=== PATIENT | male | born 1945 | race Caucasian/White ===

== ENCOUNTER 2019-07-22 22:25 | Inpatient (IN) | payer OTHER, SELFPAY ==
[~2019-07-22] VITALS: Ht 185.4 cm; Wt 117.9 kg
[2019-07-22 22:37] VITALS: BP_SYST 106
[2019-07-22] MEDS ORDERED: NACL 0.9% 1,000 ML IV ONE (23:00)
[2019-07-22 23:03] LABS: BASOPHILS # (AUTO) 0.1 K/uL (0.0-0.2); BASOPHILS % (AUTO) 0.7 % (0.0-2.0); EOSINOPHILS % (AUTO) 0.1 % (0.0-4.0); HEMATOCRIT 42.9 % (36-54); LYMPHOCYTES # (AUTO) 1.1 K/uL (1.0-5.5); LYMPHOCYTES % (AUTO) 7.1 % (20.5-51.5); MEAN CORPUSCULAR HEMOGLOBIN 27 pg (27-31); MEAN CORPUSCULAR HGB CONC 33 % (32-36); MEAN CORPUSCULAR VOLUME 83 fL (79.0-98.0); MONOCYTES # (AUTO) 0.8 K/uL (0.0-1.0); MONOCYTES % (AUTO) 5.2 % (1.7-9.3); NEUTROPHILS # (AUTO) 13.5 K/uL (1.8-7.7); NEUTROPHILS % (AUTO) 86.9 % (40.0-70.0); PLATELET COUNT (AUTO) 270 K/uL (130-430); RED BLOOD CELL COUNT(AUTO) 5.18 MIL/uL (4.2-6.2); RED CELL DISTRIBUTION WIDTH 16.5 % (9.0-15.0); WHITE BLOOD COUNT (AUTO) 15.6 K/uL (4.8-10.8)
[2019-07-22 23:14] LABS: ANION GAP 8 (5-15); CALCIUM 9.5 mg/dL (8.4-11.0); CHLORIDE 98 mmol/L (98-107); CREATININE 1.22 mg/dL (0.55-1.30); GLUCOSE 187 mg/dL (70-99); POTASSIUM 4.6 mmol/L (3.5-5.1); SODIUM SERUM 134 mmol/L (136-145); UREA NITROGEN, BLOOD 22 mg/dL (8-21)
[2019-07-22 23:17] LABS: STREPTOCOCCUS A SCREEN (RAPID) NEGATIVE (NEGATIVE)
[2019-07-22 23:18] LABS: PROTHROMBIN TIME 9.9 SECS (9.5-12.5)
[2019-07-22 23:20] LABS: ALANINE AMINOTRANSFERASE 31 U/L (12-78); ALBUMIN 3.6 g/dL (3.4-4.8); ASPARTATE AMINOTRANSFERASE 68 U/L (10-37); TOTAL BILIRUBIN 0.5 mg/dL (0.0-1.0)
[2019-07-22] MEDS ORDERED: IBUPROFEN 600 MG TABLET PO ONE (23:30)
[2019-07-22] MEDS ORDERED: IBUPROFEN 600 MG TABLET ONE (23:30)
[2019-07-22] MEDS ORDERED: OMEG-173 PO (23:40)
[2019-07-22] MEDS ORDERED: VENL75CA PO (23:40)
[2019-07-22] MEDS ORDERED: CHOL2000 PO (23:40)
[2019-07-22] MEDS ORDERED: CLON0.5T12 PO (23:40)
[2019-07-22] MEDS ORDERED: LISI-600 PO (23:40)
[2019-07-22] MEDS ORDERED: LIP20 PO (23:40)
[2019-07-22] MEDS ORDERED: CLOP75TA32 PO (23:40)
[2019-07-22] MEDS ORDERED: TAMS-11 PO (23:40)
[2019-07-22] MEDS ORDERED: ACET-2165 PO (23:40)
[2019-07-22] MEDS ORDERED: INSU100I4 SUBQ (23:40)
[2019-07-22] MEDS ORDERED: VORT5TAB PO (23:40)
[2019-07-22] MEDS ORDERED: OSELTAMIVIR PHOSPHATE 6 MG/1 ML, 60 ML SUSP PO ONE (23:45)
[2019-07-23] VITALS (23 sets, daily range): BP systolic 87–148
[2019-07-23 00:26] LABS: BILIRUBIN,URINE NEGATIVE (NEGATIVE); BLOOD, URINE NEGATIVE (NEGATIVE); CLARITY/URINE CLEAR (CLEAR); COLOR,URINE YELLOW (YELLOW); GLUCOSE,URINE NEGATIVE (NEGATIVE); KETONES,URINE NEGATIVE (NEGATIVE); LEUKOCYTE ESTERASE ,URINE NEGATIVE (NEGATIVE); NITRITE, URINE NEGATIVE (NEGATIVE); PH,URINE 5.5 (5.0-8.0); PROTEIN URINE 1+ (NEGATIVE); UROBILINOGEN,URINE 0.2 (0.2-1.0)
[2019-07-23 00:32] LABS: RBC,URINE 0-3 /HPF (0-3)
[2019-07-23 00:33] LABS: BACTERIA,URINE FEW /HPF (None Seen)
[2019-07-23] MEDS ORDERED: NACL 0.9% 1,000 ML IV ONE (00:42)
[2019-07-23] MEDS ORDERED: cefTRIAXone 1 GM IVPB PREMIX 50 ML IV ONE (00:45)
[2019-07-23] MEDS ORDERED: OSELTAMIVIR PHOSPHATE 75 MG CAPSULE PO ONE (01:15)
[2019-07-23] MEDS ORDERED: OSELTAMIVIR PHOSPHATE 75 MG CAPSULE ONE (01:27)
[2019-07-23] MEDS ORDERED: ALBUTEROL SULFATE 0.083% 2.5 MG/3 ML VIAL.NEB INH PRN (03:00)
[2019-07-23] MEDS ORDERED: ACETAMINOPHEN 325 MG TABLET PO PRN ×2 (03:00→03:30)
[2019-07-23] MEDS: IPRATROPIUM/ALBUTEROL SULFATE 3 ML AMPUL.NEB (DUONEB) INH SCH ×4 (03:00→21:25)
[2019-07-23] MEDS ORDERED: AZITHROMYCIN 500 MG in NS 250 ML IV SCH ×2 (03:30→21:00)
[2019-07-23] MEDS ORDERED: HYDROcodone/ACETAMIN 5-325 MG TAB (NORCO/ VICODIN) PO PRN (03:30)
[2019-07-23] MEDS ORDERED: ONDANSETRON HCL 4 MG/2 ML VIAL IVP PRN (03:30)
[2019-07-23] MEDS ORDERED: cefTRIAXone 1 GM IVPB PREMIX 50 ML IV SCH (03:30)
[2019-07-23] MEDS ORDERED: AZITHROMYCIN 500 MG/VIAL (ZITHROMAX) IV ONE (04:39)
[2019-07-23] MEDS: NACL 0.9% 1,000 ML IV SCH ×3 (05:03→21:12)
[2019-07-23] MEDS: INSULIN REGULAR, HUMAN 100 UNITS/ML, 10 ML VIAL (humuLIN R) SUBCUT PRN ×3 (05:09→18:20)
[2019-07-23 08:42] LABS: BASOPHILS # (AUTO) 0.1 K/uL (0.0-0.2); BASOPHILS % (AUTO) 0.4 % (0.0-2.0); HEMATOCRIT 39.7 % (36-54); HEMOGLOBIN 13.1 g/dL (14.0-18.0); LYMPHOCYTES # (AUTO) 0.9 K/uL (1.0-5.5); MEAN CORPUSCULAR HEMOGLOBIN 27 pg (27-31); MEAN CORPUSCULAR HGB CONC 33 % (32-36); MEAN CORPUSCULAR VOLUME 83 fL (79.0-98.0); MONOCYTES # (AUTO) 0.7 K/uL (0.0-1.0); MONOCYTES % (AUTO) 4.7 % (1.7-9.3); NEUTROPHILS # (AUTO) 13.5 K/uL (1.8-7.7); NEUTROPHILS % (AUTO) 88.9 % (40.0-70.0); PLATELET COUNT (AUTO) 238 K/uL (130-430); RED BLOOD CELL COUNT(AUTO) 4.77 MIL/uL (4.2-6.2); RED CELL DISTRIBUTION WIDTH 16.7 % (9.0-15.0); WHITE BLOOD COUNT (AUTO) 15.2 K/uL (4.8-10.8)
[2019-07-23] MEDS ORDERED: OSELTAMIVIR PHOSPHATE 75 MG CAPSULE PO SCH (09:00)
[2019-07-23] MEDS: ATORVASTATIN 20 MG TABLET PO SCH (09:15)
[2019-07-23] MEDS: TAMSULOSIN HCL 0.4 MG CAP PO SCH (09:15)
[2019-07-23] MEDS: OSELTAMIVIR PHOSPHATE 75 MG CAPSULE PO SCH ×2 (09:15→21:15)
[2019-07-23] MEDS: LISINOPRIL 20 MG TABLET PO SCH (09:15)
[2019-07-23] MEDS: ENOXAPARIN SODIUM 30 MG/0.3 ML SYRINGE SUBCUT SCH (09:16)
[2019-07-23 09:41] LABS: ALANINE AMINOTRANSFERASE 77 U/L (12-78); ALBUMIN 2.9 g/dL (3.4-4.8); ASPARTATE AMINOTRANSFERASE 129 U/L (10-37); CALCIUM 8.3 mg/dL (8.4-11.0); CHLORIDE 102 mmol/L (98-107); CREATININE 1.15 mg/dL (0.55-1.30); GLUCOSE 250 mg/dL (70-99); SODIUM SERUM 135 mmol/L (136-145); TOTAL BILIRUBIN 0.7 mg/dL (0.0-1.0); UREA NITROGEN, BLOOD 23 mg/dL (8-21)
[2019-07-23 09:45] LABS: ANION GAP 15 (5-15)
[2019-07-23] MEDS: CLOPIDOGREL BISULFATE 75 MG TABLET PO SCH (11:05)
[2019-07-23] MEDS: Effexor XR 37.5 MG PO SCH ×2 (11:10→21:14)
[2019-07-23] MEDS ORDERED: metroNIDAZOLE 500 mg/NS 100 ML IV ONE (14:00)
[2019-07-23] MEDS ORDERED: EMOLLIENT COMBINATION NO.73 78 GM CREAM..G. TP ONE (17:00)
[2019-07-23] MEDS: cefTRIAXone 1 GM in D5W 50 ML IV SCH (21:12)
[2019-07-23] MEDS: IBUPROFEN 600 MG TABLET PO PRN (21:16)
[2019-07-23] MEDS: EMOLLIENT COMBINATION NO.73 78 GM CREAM..G. TP SCH (21:18)
[2019-07-23] MEDS: metroNIDAZOLE 500 mg/NS 100 ML IV SCH (21:21)
[2019-07-24] VITALS (18 sets, daily range): BP systolic 99–158
[2019-07-24] MEDS: INSULIN REGULAR, HUMAN 100 UNITS/ML, 10 ML VIAL (humuLIN R) SUBCUT PRN ×5 (00:56→23:56)
[2019-07-24] MEDS: IPRATROPIUM/ALBUTEROL SULFATE 3 ML AMPUL.NEB (DUONEB) INH SCH ×4 (01:49→19:46)
[2019-07-24] MEDS: NACL 0.9% 1,000 ML IV SCH ×3 (03:00→21:36)
[2019-07-24 05:01] LABS: BASOPHILS # (AUTO) 0.1 K/uL (0.0-0.2); BASOPHILS % (AUTO) 0.6 % (0.0-2.0); EOSINOPHILS # (AUTO) 0.1 K/uL (0.0-0.4); EOSINOPHILS % (AUTO) 0.4 % (0.0-4.0); HEMATOCRIT 35.8 % (36-54); HEMOGLOBIN 11.6 g/dL (14.0-18.0); LYMPHOCYTES # (AUTO) 1.1 K/uL (1.0-5.5); LYMPHOCYTES % (AUTO) 10.1 % (20.5-51.5); MEAN CORPUSCULAR HEMOGLOBIN 27 pg (27-31); MEAN CORPUSCULAR HGB CONC 33 % (32-36); MEAN CORPUSCULAR VOLUME 84 fL (79.0-98.0); MONOCYTES # (AUTO) 1.2 K/uL (0.0-1.0); MONOCYTES % (AUTO) 10.3 % (1.7-9.3); NEUTROPHILS # (AUTO) 8.9 K/uL (1.8-7.7); NEUTROPHILS % (AUTO) 78.6 % (40.0-70.0); PLATELET COUNT (AUTO) 204 K/uL (130-430); RED BLOOD CELL COUNT(AUTO) 4.28 MIL/uL (4.2-6.2); RED CELL DISTRIBUTION WIDTH 16.1 % (9.0-15.0); WHITE BLOOD COUNT (AUTO) 11.3 K/uL (4.8-10.8)
[2019-07-24 05:18] LABS: ALANINE AMINOTRANSFERASE 79 U/L (12-78); ALBUMIN 2.5 g/dL (3.4-4.8); ANION GAP 7 (5-15); ASPARTATE AMINOTRANSFERASE 29 U/L (10-37); CALCIUM 8.3 mg/dL (8.4-11.0); CHLORIDE 101 mmol/L (98-107); CREATININE 1.14 mg/dL (0.55-1.30); GLUCOSE 253 mg/dL (70-99); POTASSIUM 3.5 mmol/L (3.5-5.1); SODIUM SERUM 131 mmol/L (136-145); TOTAL BILIRUBIN 0.4 mg/dL (0.0-1.0); UREA NITROGEN, BLOOD 24 mg/dL (8-21)
[2019-07-24] MEDS: metroNIDAZOLE 500 mg/NS 100 ML IV SCH ×2 (06:40→12:57)
[2019-07-24] MEDS: ENOXAPARIN SODIUM 30 MG/0.3 ML SYRINGE SUBCUT SCH (08:38)
[2019-07-24] MEDS: OSELTAMIVIR PHOSPHATE 75 MG CAPSULE PO SCH ×2 (08:39→21:32)
[2019-07-24] MEDS: TAMSULOSIN HCL 0.4 MG CAP PO SCH (08:39)
[2019-07-24] MEDS: ATORVASTATIN 20 MG TABLET PO SCH (08:39)
[2019-07-24] MEDS: Effexor XR 37.5 MG PO SCH (08:39)
[2019-07-24] MEDS: LISINOPRIL 20 MG TABLET PO SCH (08:39)
[2019-07-24] MEDS: CLOPIDOGREL BISULFATE 75 MG TABLET PO SCH (08:39)
[2019-07-24] MEDS: EMOLLIENT COMBINATION NO.73 78 GM CREAM..G. TP SCH ×2 (08:45→21:33)
[2019-07-24] MEDS ORDERED: cefTRIAXone 1 GM in D5W 50 ML IV SCH (09:00)
[2019-07-24] MEDS ORDERED: LORazepam 2 MG/ML VIAL IVP ONE (21:30)
[2019-07-24] MEDS: DOXYCYCLINE HYCLATE 100 MG CAPSULE PO SCH (21:32)
[2019-07-24] MEDS: cefTRIAXone 1 GM in D5W 50 ML IV SCH (21:34)
[2019-07-25] MEDS: IBUPROFEN 600 MG TABLET PO PRN (00:33)
[2019-07-25 00:57] VITALS: BP_SYST 147
[2019-07-25] MEDS: IPRATROPIUM/ALBUTEROL SULFATE 3 ML AMPUL.NEB (DUONEB) INH SCH ×4 (01:05→19:40)
[2019-07-25] MEDS: clonazePAM 0.5 MG TABLET PO PRN (01:54)
[2019-07-25] MEDS: NACL 0.9% 1,000 ML IV SCH ×3 (03:28→19:56)
[2019-07-25] MEDS: INSULIN REGULAR, HUMAN 100 UNITS/ML, 10 ML VIAL (humuLIN R) SUBCUT PRN ×4 (06:04→23:57)
[2019-07-25] MEDS: DOXYCYCLINE HYCLATE 100 MG CAPSULE PO SCH ×2 (08:22→19:57)
[2019-07-25] MEDS: LISINOPRIL 20 MG TABLET PO SCH (08:22)
[2019-07-25] MEDS: TAMSULOSIN HCL 0.4 MG CAP PO SCH (08:22)
[2019-07-25] MEDS: CLOPIDOGREL BISULFATE 75 MG TABLET PO SCH (08:22)
[2019-07-25] MEDS: ATORVASTATIN 20 MG TABLET PO SCH (08:22)
[2019-07-25] MEDS: OSELTAMIVIR PHOSPHATE 75 MG CAPSULE PO SCH ×2 (08:22→19:57)
[2019-07-25] MEDS: EMOLLIENT COMBINATION NO.73 78 GM CREAM..G. TP SCH ×2 (08:23→19:57)
[2019-07-25] MEDS: ENOXAPARIN SODIUM 30 MG/0.3 ML SYRINGE SUBCUT SCH (08:25)
[2019-07-25 10:03] VITALS: BP_SYST 154
[2019-07-25 12:43] VITALS: BP_SYST 115
[2019-07-25 16:18] VITALS: BP_SYST 135
[2019-07-25] MEDS: cefTRIAXone 1 GM in D5W 50 ML IV SCH (19:57)
[2019-07-25 20:00] VITALS: BP_SYST 146
[2019-07-26] VITALS (21 sets, daily range): BP systolic 115–167
[2019-07-26] MEDS: clonazePAM 0.5 MG TABLET PO PRN (01:54)
[2019-07-26] MEDS: IPRATROPIUM/ALBUTEROL SULFATE 3 ML AMPUL.NEB (DUONEB) INH SCH ×2 (01:54→19:41)
[2019-07-26] MEDS ORDERED: DILTIAZEM HCL 25 MG/5 ML VIAL IVP ONE ×2 (02:45→06:30)
[2019-07-26] MEDS: INSULIN REGULAR, HUMAN 100 UNITS/ML, 10 ML VIAL (humuLIN R) SUBCUT PRN ×3 (05:10→18:39)
[2019-07-26] MEDS: LISINOPRIL 20 MG TABLET PO SCH (09:00)
[2019-07-26] MEDS ORDERED: PROPOFOL DRIP 100 ML IV ONE (10:19)
[2019-07-26] MEDS ORDERED: FUROSEMIDE 20 MG/2 ML VIAL IVP ONE (10:30)
[2019-07-26 11:29] LABS: EOSINOPHILS % (AUTO) 0.1 % (0.0-4.0); HEMATOCRIT 40.8 % (36-54); HEMOGLOBIN 12.8 g/dL (14.0-18.0); LYMPHOCYTES # (AUTO) 0.7 K/uL (1.0-5.5); LYMPHOCYTES % (AUTO) 4.2 % (20.5-51.5); MEAN CORPUSCULAR HEMOGLOBIN 27 pg (27-31); MEAN CORPUSCULAR HGB CONC 31 % (32-36); MEAN CORPUSCULAR VOLUME 85 fL (79.0-98.0); MONOCYTES # (AUTO) 2.1 K/uL (0.0-1.0); MONOCYTES % (AUTO) 11.6 % (1.7-9.3); PLATELET COUNT (AUTO) 328 K/uL (130-430); RED CELL DISTRIBUTION WIDTH 17.2 % (9.0-15.0); WHITE BLOOD COUNT (AUTO) 17.9 K/uL (4.8-10.8)
[2019-07-26 11:49] LABS: CHLORIDE 101 mmol/L (98-107); SODIUM SERUM 134 mmol/L (136-145); TOTAL BILIRUBIN 0.8 mg/dL (0.0-1.0)
[2019-07-26] MEDS ORDERED: ETOMIDATE 20 MG/ 10 ML VIAL (AMIDATE) IVP ONE (11:52)
[2019-07-26] MEDS ORDERED: SUCCINYLCHOLINE CHLORIDE 20 MG/ML(QUELICIN) IVP ONE (11:52)
[2019-07-26 12:05] LABS: ALANINE AMINOTRANSFERASE 88 U/L (12-78); ALBUMIN 2.3 g/dL (3.4-4.8); ANION GAP 15 (5-15); ASPARTATE AMINOTRANSFERASE 107 U/L (10-37); CALCIUM 8.4 mg/dL (8.4-11.0); CREATININE 1.63 mg/dL (0.55-1.30); POTASSIUM 4.7 mmol/L (3.5-5.1); UREA NITROGEN, BLOOD 19 mg/dL (8-21)
[2019-07-26 12:09] LABS: GLUCOSE 454 mg/dL (70-99)
[2019-07-26 12:11] LABS: INR 1.1 (0.80-1.20); PROTHROMBIN TIME 11.1 SECS (9.5-12.5)
[2019-07-26 12:21] LABS: NEUTROPHILS % (AUTO) 84.1 % (40.0-70.0)
[2019-07-26] MEDS: NACL 0.9% 1,000 ML IV SCH (13:19)
[2019-07-26] MEDS: ATORVASTATIN 20 MG TABLET PO SCH (13:20)
[2019-07-26] MEDS: CLOPIDOGREL BISULFATE 75 MG TABLET PO SCH (13:20)
[2019-07-26] MEDS: DOXYCYCLINE HYCLATE 100 MG CAPSULE PO SCH ×2 (13:20→21:11)
[2019-07-26] MEDS: TAMSULOSIN HCL 0.4 MG CAP PO SCH (13:20)
[2019-07-26] MEDS: OSELTAMIVIR PHOSPHATE 75 MG CAPSULE PO SCH ×2 (13:20→21:09)
[2019-07-26] MEDS: PIPERACILLIN/TAZO 3.375/DEX-IS 50 ML IV SCH ×2 (13:22→18:29)
[2019-07-26] MEDS: ENOXAPARIN SODIUM 30 MG/0.3 ML SYRINGE SUBCUT SCH (13:22)
[2019-07-26] MEDS: EMOLLIENT COMBINATION NO.73 78 GM CREAM..G. TP SCH ×2 (13:28→21:12)
[2019-07-26] MEDS: PROPOFOL DRIP 100 ML IV PRN ×2 (17:56→18:33)
[2019-07-26 21:02] LABS: HEMATOCRIT 35.7 % (36-54); HEMOGLOBIN 11.5 g/dL (14.0-18.0)
[2019-07-26] MEDS ORDERED: PANTOPRAZOLE SODIUM 40 MG/VIAL (PROTONIX) ONE (21:03)
[2019-07-26] MEDS: PANTOPRAZOLE SODIUM 40 MG in NS 50 ML IV SCH (21:05)
[2019-07-26] MEDS: cefTRIAXone 1 GM in D5W 50 ML IV SCH (21:09)
[2019-07-27] VITALS (33 sets, daily range): BP systolic 94–167
[2019-07-27] MEDS ORDERED: PANTOPRAZOLE SODIUM 40 MG/VIAL (PROTONIX) ONE ×2 (00:58→05:58)
[2019-07-27] MEDS: PIPERACILLIN/TAZO 3.375/DEX-IS 50 ML IV SCH ×4 (01:01→17:41)
[2019-07-27] MEDS: PANTOPRAZOLE SODIUM 40 MG in NS 50 ML IV SCH ×5 (01:01→20:34)
[2019-07-27] MEDS: IPRATROPIUM/ALBUTEROL SULFATE 3 ML AMPUL.NEB (DUONEB) INH SCH ×4 (01:21→19:44)
[2019-07-27] MEDS: INSULIN REGULAR, HUMAN 100 UNITS/ML, 10 ML VIAL (humuLIN R) SUBCUT PRN ×4 (01:35→17:48)
[2019-07-27] MEDS: PROPOFOL DRIP 100 ML IV PRN ×5 (05:25→20:39)
[2019-07-27 05:26] LABS: BASOPHILS # (AUTO) 0.1 K/uL (0.0-0.2); BASOPHILS % (AUTO) 0.5 % (0.0-2.0); EOSINOPHILS # (AUTO) 0.2 K/uL (0.0-0.4); EOSINOPHILS % (AUTO) 1.2 % (0.0-4.0); HEMATOCRIT 36.9 % (36-54); HEMOGLOBIN 11.8 g/dL (14.0-18.0); LYMPHOCYTES # (AUTO) 1.4 K/uL (1.0-5.5); LYMPHOCYTES % (AUTO) 8.7 % (20.5-51.5); MEAN CORPUSCULAR HEMOGLOBIN 26 pg (27-31); MEAN CORPUSCULAR HGB CONC 32 % (32-36); MONOCYTES # (AUTO) 1.4 K/uL (0.0-1.0); MONOCYTES % (AUTO) 8.6 % (1.7-9.3); NEUTROPHILS # (AUTO) 13.1 K/uL (1.8-7.7); PLATELET COUNT (AUTO) 335 K/uL (130-430); RED BLOOD CELL COUNT(AUTO) 4.49 MIL/uL (4.2-6.2); RED CELL DISTRIBUTION WIDTH 16.9 % (9.0-15.0); WHITE BLOOD COUNT (AUTO) 16.2 K/uL (4.8-10.8)
[2019-07-27 05:35] LABS: MEAN CORPUSCULAR VOLUME 83 fL (79.0-98.0)
[2019-07-27 05:37] LABS: ALANINE AMINOTRANSFERASE 108 U/L (12-78); ALBUMIN 2.2 g/dL (3.4-4.8); ANION GAP 12 (5-15); ASPARTATE AMINOTRANSFERASE 108 U/L (10-37); CALCIUM 8.8 mg/dL (8.4-11.0); CHLORIDE 103 mmol/L (98-107); CREATININE 1.56 mg/dL (0.55-1.30); GLUCOSE 322 mg/dL (70-99); POTASSIUM 3.3 mmol/L (3.5-5.1); SODIUM SERUM 139 mmol/L (136-145); TOTAL BILIRUBIN 0.5 mg/dL (0.0-1.0); UREA NITROGEN, BLOOD 24 mg/dL (8-21)
[2019-07-27] MEDS: NACL 0.9% 1,000 ML IV SCH ×2 (06:02→20:35)
[2019-07-27] MEDS: CLOPIDOGREL BISULFATE 75 MG TABLET PO SCH (08:21)
[2019-07-27] MEDS: OSELTAMIVIR PHOSPHATE 75 MG CAPSULE PO SCH ×2 (08:21→20:36)
[2019-07-27] MEDS: TAMSULOSIN HCL 0.4 MG CAP PO SCH (08:22)
[2019-07-27] MEDS: LISINOPRIL 20 MG TABLET PO SCH (08:22)
[2019-07-27] MEDS: ATORVASTATIN 20 MG TABLET PO SCH (08:22)
[2019-07-27] MEDS: DOXYCYCLINE HYCLATE 100 MG CAPSULE PO SCH ×2 (08:23→20:36)
[2019-07-27] MEDS: ENOXAPARIN SODIUM 30 MG/0.3 ML SYRINGE SUBCUT SCH (08:25)
[2019-07-27] MEDS: EMOLLIENT COMBINATION NO.73 78 GM CREAM..G. TP SCH ×2 (09:00→20:39)
[2019-07-27] MEDS ORDERED: FUROSEMIDE 20 MG/2 ML VIAL IVP ONE (09:30)
[2019-07-27] MEDS ORDERED: KCL 20 mEq in 100 mL (PREMIX) 200 ML IV ONE (09:30)
[2019-07-27] MEDS: LORazepam 2 MG/ML VIAL IM PRN ×3 (11:29→20:35)
[2019-07-27] MEDS: cefTRIAXone 1 GM in D5W 50 ML IV SCH (20:34)
[2019-07-28] VITALS (30 sets, daily range): BP systolic 93–152
[2019-07-28] MEDS: IPRATROPIUM/ALBUTEROL SULFATE 3 ML AMPUL.NEB (DUONEB) INH SCH ×4 (00:08→20:18)
[2019-07-28] MEDS: INSULIN REGULAR, HUMAN 100 UNITS/ML, 10 ML VIAL (humuLIN R) SUBCUT PRN ×4 (00:19→16:57)
[2019-07-28] MEDS: PIPERACILLIN/TAZO 3.375/DEX-IS 50 ML IV SCH ×4 (00:20→16:49)
[2019-07-28] MEDS: PANTOPRAZOLE SODIUM 40 MG in NS 50 ML IV SCH ×5 (00:20→21:59)
[2019-07-28] MEDS: LORazepam 2 MG/ML VIAL IM PRN (00:25)
[2019-07-28] MEDS: PROPOFOL DRIP 100 ML IV PRN ×4 (02:32→16:54)
[2019-07-28] MEDS: TAMSULOSIN HCL 0.4 MG CAP PO SCH (09:49)
[2019-07-28] MEDS: ATORVASTATIN 20 MG TABLET PO SCH (09:49)
[2019-07-28] MEDS: DOXYCYCLINE HYCLATE 100 MG CAPSULE PO SCH ×2 (09:50→21:58)
[2019-07-28] MEDS: LISINOPRIL 20 MG TABLET PO SCH (09:50)
[2019-07-28] MEDS: CLOPIDOGREL BISULFATE 75 MG TABLET PO SCH (09:50)
[2019-07-28] MEDS: NACL 0.9% 1,000 ML IV SCH (09:52)
[2019-07-28] MEDS: ENOXAPARIN SODIUM 30 MG/0.3 ML SYRINGE SUBCUT SCH (10:41)
[2019-07-28] MEDS: EMOLLIENT COMBINATION NO.73 78 GM CREAM..G. TP SCH ×2 (10:42→21:59)
[2019-07-28] MEDS ORDERED: BALSAM PERU/CASTOR OIL 60 GM OINT...G. TP ONE (12:00)
[2019-07-28] MEDS: MENTHOL/ZINC OXIDE 113 GM OINT. TP PRN (13:49)
[2019-07-28] MEDS ORDERED: MIDAZOLAM HCL 5 MG/5 ML VIAL ONE (15:59)
[2019-07-29] VITALS (31 sets, daily range): BP systolic 124–163
[2019-07-29] MEDS: PIPERACILLIN/TAZO 3.375/DEX-IS 50 ML IV SCH ×4 (00:46→18:22)
[2019-07-29] MEDS: PROPOFOL DRIP 100 ML IV PRN ×6 (00:46→21:29)
[2019-07-29] MEDS: NACL 0.9% 1,000 ML IV SCH ×2 (00:47→16:39)
[2019-07-29] MEDS: INSULIN REGULAR, HUMAN 100 UNITS/ML, 10 ML VIAL (humuLIN R) SUBCUT PRN ×4 (00:50→18:23)
[2019-07-29] MEDS: IPRATROPIUM/ALBUTEROL SULFATE 3 ML AMPUL.NEB (DUONEB) INH SCH ×4 (01:28→19:20)
[2019-07-29] MEDS: PANTOPRAZOLE SODIUM 40 MG in NS 50 ML IV SCH ×5 (03:07→21:27)
[2019-07-29] MEDS: TAMSULOSIN HCL 0.4 MG CAP PO SCH (09:13)
[2019-07-29] MEDS: CLOPIDOGREL BISULFATE 75 MG TABLET PO SCH (09:13)
[2019-07-29] MEDS: DOXYCYCLINE HYCLATE 100 MG CAPSULE PO SCH ×2 (09:14→21:26)
[2019-07-29] MEDS: ATORVASTATIN 20 MG TABLET PO SCH (09:14)
[2019-07-29] MEDS: BALSAM PERU/CASTOR OIL 60 GM OINT...G. TP SCH (09:15)
[2019-07-29] MEDS: MENTHOL/ZINC OXIDE 113 GM OINT. TP PRN (09:16)
[2019-07-29] MEDS: ENOXAPARIN SODIUM 30 MG/0.3 ML SYRINGE SUBCUT SCH (09:16)
[2019-07-29] MEDS: LISINOPRIL 20 MG TABLET PO SCH (09:22)
[2019-07-29] MEDS: EMOLLIENT COMBINATION NO.73 78 GM CREAM..G. TP SCH ×2 (10:43→21:26)
[2019-07-30] VITALS (29 sets, daily range): BP systolic 135–172
[2019-07-30] MEDS: PIPERACILLIN/TAZO 3.375/DEX-IS 50 ML IV SCH ×4 (00:03→17:15)
[2019-07-30] MEDS: INSULIN REGULAR, HUMAN 100 UNITS/ML, 10 ML VIAL (humuLIN R) SUBCUT PRN ×4 (00:06→17:40)
[2019-07-30] MEDS: IPRATROPIUM/ALBUTEROL SULFATE 3 ML AMPUL.NEB (DUONEB) INH SCH ×4 (01:47→21:31)
[2019-07-30] MEDS: PANTOPRAZOLE SODIUM 40 MG in NS 50 ML IV SCH ×4 (03:18→19:28)
[2019-07-30] MEDS: PROPOFOL DRIP 100 ML IV PRN ×4 (03:19→19:30)
[2019-07-30] MEDS: NACL 0.9% 1,000 ML IV SCH ×2 (05:34→21:47)
[2019-07-30 05:46] LABS: ANION GAP 8 (5-15); CALCIUM 8.5 mg/dL (8.4-11.0); CHLORIDE 104 mmol/L (98-107); CREATININE 1.21 mg/dL (0.55-1.30); GLUCOSE 250 mg/dL (70-99); POTASSIUM 3.4 mmol/L (3.5-5.1); SODIUM SERUM 137 mmol/L (136-145); UREA NITROGEN, BLOOD 21 mg/dL (8-21)
[2019-07-30] MEDS: TAMSULOSIN HCL 0.4 MG CAP PO SCH (08:58)
[2019-07-30] MEDS: ENOXAPARIN SODIUM 30 MG/0.3 ML SYRINGE SUBCUT SCH (08:58)
[2019-07-30] MEDS: LISINOPRIL 20 MG TABLET PO SCH (08:59)
[2019-07-30] MEDS: ATORVASTATIN 20 MG TABLET PO SCH (08:59)
[2019-07-30] MEDS: CLOPIDOGREL BISULFATE 75 MG TABLET PO SCH (08:59)
[2019-07-30] MEDS: DOXYCYCLINE HYCLATE 100 MG CAPSULE PO SCH ×2 (08:59→21:47)
[2019-07-30] MEDS: EMOLLIENT COMBINATION NO.73 78 GM CREAM..G. TP SCH ×2 (09:00→21:48)
[2019-07-30] MEDS: BALSAM PERU/CASTOR OIL 60 GM OINT...G. TP SCH (09:01)
[2019-07-30] MEDS: MENTHOL/ZINC OXIDE 113 GM OINT. TP PRN (09:02)
[2019-07-30] MEDS ORDERED: POTASSIUM CHLORIDE 20 MEQ in NS 250 ML IV ONE (11:45)
[2019-07-30] MEDS: hydrALAZINE HCL 20 MG/ML VIAL IVP PRN ×2 (13:21→22:34)
[2019-07-31] VITALS (34 sets, daily range): BP systolic 111–170
[2019-07-31] MEDS: PIPERACILLIN/TAZO 3.375/DEX-IS 50 ML IV SCH ×4 (00:19→17:28)
[2019-07-31] MEDS: PANTOPRAZOLE SODIUM 40 MG in NS 50 ML IV SCH ×6 (00:19→19:28)
[2019-07-31] MEDS: INSULIN REGULAR, HUMAN 100 UNITS/ML, 10 ML VIAL (humuLIN R) SUBCUT PRN ×4 (00:25→17:32)
[2019-07-31] MEDS: PROPOFOL DRIP 100 ML IV PRN ×5 (01:33→17:29)
[2019-07-31] MEDS: IPRATROPIUM/ALBUTEROL SULFATE 3 ML AMPUL.NEB (DUONEB) INH SCH ×4 (01:47→19:35)
[2019-07-31] MEDS: hydrALAZINE HCL 20 MG/ML VIAL IVP PRN ×2 (04:19→23:50)
[2019-07-31] MEDS: ATORVASTATIN 20 MG TABLET PO SCH (09:07)
[2019-07-31] MEDS: CLOPIDOGREL BISULFATE 75 MG TABLET PO SCH (09:07)
[2019-07-31] MEDS: TAMSULOSIN HCL 0.4 MG CAP PO SCH (09:07)
[2019-07-31] MEDS: LISINOPRIL 20 MG TABLET PO SCH (09:07)
[2019-07-31] MEDS: ENOXAPARIN SODIUM 30 MG/0.3 ML SYRINGE SUBCUT SCH (09:08)
[2019-07-31] MEDS: NACL 0.9% 1,000 ML IV SCH (09:09)
[2019-07-31] MEDS: BALSAM PERU/CASTOR OIL 60 GM OINT...G. TP SCH (09:09)
[2019-07-31] MEDS: EMOLLIENT COMBINATION NO.73 78 GM CREAM..G. TP SCH ×2 (09:10→21:55)
[2019-07-31] MEDS: MENTHOL/ZINC OXIDE 113 GM OINT. TP PRN (09:58)
[2019-07-31 15:16] LABS: BASOPHILS # (AUTO) 0.1 K/uL (0.0-0.2); BASOPHILS % (AUTO) 0.6 % (0.0-2.0); EOSINOPHILS # (AUTO) 0.9 K/uL (0.0-0.4); EOSINOPHILS % (AUTO) 5.2 % (0.0-4.0); HEMATOCRIT 32.6 % (36-54); HEMOGLOBIN 10.7 g/dL (14.0-18.0); LYMPHOCYTES # (AUTO) 1.5 K/uL (1.0-5.5); LYMPHOCYTES % (AUTO) 9.3 % (20.5-51.5); MEAN CORPUSCULAR HEMOGLOBIN 27 pg (27-31); MEAN CORPUSCULAR HGB CONC 33 % (32-36); MEAN CORPUSCULAR VOLUME 84 fL (79.0-98.0); MONOCYTES # (AUTO) 1.1 K/uL (0.0-1.0); MONOCYTES % (AUTO) 6.5 % (1.7-9.3); NEUTROPHILS % (AUTO) 78.4 % (40.0-70.0); PLATELET COUNT (AUTO) 339 K/uL (130-430); RED CELL DISTRIBUTION WIDTH 16.6 % (9.0-15.0); WHITE BLOOD COUNT (AUTO) 16.6 K/uL (4.8-10.8)
[2019-07-31] MEDS: FUROSEMIDE 20 MG/2 ML VIAL IVP SCH (21:54)
[2019-08-01] VITALS (33 sets, daily range): BP systolic 111–188
[2019-08-01] MEDS: NACL 0.9% 1,000 ML IV SCH ×2 (00:01→14:54)
[2019-08-01] MEDS: INSULIN REGULAR, HUMAN 100 UNITS/ML, 10 ML VIAL (humuLIN R) SUBCUT PRN ×4 (00:11→17:21)
[2019-08-01] MEDS: PANTOPRAZOLE SODIUM 40 MG in NS 50 ML IV SCH ×5 (00:29→22:33)
[2019-08-01] MEDS: IPRATROPIUM/ALBUTEROL SULFATE 3 ML AMPUL.NEB (DUONEB) INH SCH ×3 (00:32→13:29)
[2019-08-01] MEDS: PROPOFOL DRIP 100 ML IV PRN ×3 (01:28→11:57)
[2019-08-01] MEDS: hydrALAZINE HCL 20 MG/ML VIAL IVP PRN ×2 (03:50→09:29)
[2019-08-01] MEDS: LORazepam 2 MG/ML VIAL IM PRN (05:53)
[2019-08-01] MEDS: PIPERACILLIN/TAZO 3.375/DEX-IS 50 ML IV SCH ×4 (05:53→17:18)
[2019-08-01] MEDS: BALSAM PERU/CASTOR OIL 60 GM OINT...G. TP SCH (08:14)
[2019-08-01] MEDS: EMOLLIENT COMBINATION NO.73 78 GM CREAM..G. TP SCH (08:14)
[2019-08-01] MEDS: ENOXAPARIN SODIUM 30 MG/0.3 ML SYRINGE SUBCUT SCH (08:15)
[2019-08-01] MEDS: FUROSEMIDE 20 MG/2 ML VIAL IVP SCH (08:15)
[2019-08-01] MEDS: CLOPIDOGREL BISULFATE 75 MG TABLET PO SCH (08:16)
[2019-08-01] MEDS: TAMSULOSIN HCL 0.4 MG CAP PO SCH (08:16)
[2019-08-01] MEDS: LISINOPRIL 20 MG TABLET PO SCH (08:16)
[2019-08-01] MEDS: ATORVASTATIN 20 MG TABLET PO SCH (08:16)
[2019-08-01 10:41] LABS: ALANINE AMINOTRANSFERASE 69 U/L (12-78); ALBUMIN 1.9 g/dL (3.4-4.8); ANION GAP 15 (5-15); ASPARTATE AMINOTRANSFERASE 33 U/L (10-37); CALCIUM 8.2 mg/dL (8.4-11.0); CHLORIDE 103 mmol/L (98-107); CREATININE 1.59 mg/dL (0.55-1.30); POTASSIUM 3.4 mmol/L (3.5-5.1); SODIUM SERUM 138 mmol/L (136-145); TOTAL BILIRUBIN 0.5 mg/dL (0.0-1.0); UREA NITROGEN, BLOOD 25 mg/dL (8-21)
[2019-08-01 10:54] LABS: GLUCOSE 443 mg/dL (70-99)
[2019-08-01 11:41] LABS: EOSINOPHILS # (AUTO) 0.6 K/uL (0.0-0.4); EOSINOPHILS % (AUTO) 2.1 % (0.0-4.0); HEMATOCRIT 41.4 % (36-54); HEMOGLOBIN 13.3 g/dL (14.0-18.0); LYMPHOCYTES # (AUTO) 1.1 K/uL (1.0-5.5); MEAN CORPUSCULAR HEMOGLOBIN 27 pg (27-31); MEAN CORPUSCULAR HGB CONC 32 % (32-36); MEAN CORPUSCULAR VOLUME 84 fL (79.0-98.0); MONOCYTES # (AUTO) 1.5 K/uL (0.0-1.0); MONOCYTES % (AUTO) 5.4 % (1.7-9.3); NEUTROPHILS # (AUTO) 24.5 K/uL (1.8-7.7); PLATELET COUNT (AUTO) 473 K/uL (130-430); RED BLOOD CELL COUNT(AUTO) 4.93 MIL/uL (4.2-6.2); RED CELL DISTRIBUTION WIDTH 17.4 % (9.0-15.0); WHITE BLOOD COUNT (AUTO) 27.7 K/uL (4.8-10.8)
[2019-08-01 12:05] LABS: NEUTROPHILS % (AUTO) 88.5 % (40.0-70.0)
[2019-08-01] MEDS ORDERED: VANCOMYCIN HCL 1,000 MG in NS 250 ML IV ONE (18:00)
[2019-08-01] MEDS: FLUCONAZOLE 200 mg/ NS 100 ML IV SCH (18:44)
[2019-08-02] VITALS (25 sets, daily range): BP systolic 118–187
[2019-08-02] MEDS: PIPERACILLIN/TAZO 3.375/DEX-IS 50 ML IV SCH ×4 (00:08→17:35)
[2019-08-02] MEDS: INSULIN GLARGINE 100 UNITS/ML 10 ML VIAL SUBCUT SCH ×2 (00:13→20:44)
[2019-08-02] MEDS: EMOLLIENT COMBINATION NO.73 78 GM CREAM..G. TP SCH ×3 (00:18→20:42)
[2019-08-02] MEDS: IPRATROPIUM/ALBUTEROL SULFATE 3 ML AMPUL.NEB (DUONEB) INH SCH ×5 (00:20→19:59)
[2019-08-02] MEDS: PROPOFOL DRIP 100 ML IV PRN ×3 (00:23→10:02)
[2019-08-02] MEDS: FUROSEMIDE 20 MG/2 ML VIAL IVP SCH ×3 (00:24→20:41)
[2019-08-02] MEDS: INSULIN REGULAR, HUMAN 100 UNITS/ML, 10 ML VIAL (humuLIN R) SUBCUT PRN ×4 (01:13→17:41)
[2019-08-02] MEDS: PANTOPRAZOLE SODIUM 40 MG in NS 50 ML IV SCH ×4 (03:45→20:40)
[2019-08-02] MEDS: NACL 0.9% 1,000 ML IV SCH ×2 (04:47→18:21)
[2019-08-02 05:43] LABS: HEMATOCRIT 36.2 % (36-54); HEMOGLOBIN 11.6 g/dL (14.0-18.0); MEAN CORPUSCULAR HEMOGLOBIN 27 pg (27-31); MEAN CORPUSCULAR HGB CONC 32 % (32-36); MEAN CORPUSCULAR VOLUME 84 fL (79.0-98.0); RED BLOOD CELL COUNT(AUTO) 4.31 MIL/uL (4.2-6.2); RED CELL DISTRIBUTION WIDTH 17.2 % (9.0-15.0); WHITE BLOOD COUNT (AUTO) 27.8 K/uL (4.8-10.8)
[2019-08-02 05:53] LABS: ALANINE AMINOTRANSFERASE 49 U/L (12-78); ALBUMIN 1.8 g/dL (3.4-4.8); ANION GAP 9 (5-15); ASPARTATE AMINOTRANSFERASE 20 U/L (10-37); CALCIUM 8.8 mg/dL (8.4-11.0); CHLORIDE 108 mmol/L (98-107); CREATININE 1.38 mg/dL (0.55-1.30); POTASSIUM 3.1 mmol/L (3.5-5.1); SODIUM SERUM 141 mmol/L (136-145); TOTAL BILIRUBIN 0.4 mg/dL (0.0-1.0); UREA NITROGEN, BLOOD 22 mg/dL (8-21)
[2019-08-02 06:01] LABS: GLUCOSE 421 mg/dL (70-99)
[2019-08-02 06:20] LABS: PLATELET COUNT (AUTO) 407 K/uL (130-430)
[2019-08-02 06:36] LABS: BAND % (MANUAL) 2 % (0-6); BASOPHILS % (MANUAL) 0 % (0-2); EOSINOPHILS % (MANUAL) 2 % (0-7); LYMPHOCYTES % (MANUAL) 4 % (20-46); MONOCYTES % (MANUAL) 3 % (0-11)
[2019-08-02] MEDS: VANCOMYCIN HCL 1,500 MG in NS 250 ML IV SCH ×2 (09:40→20:39)
[2019-08-02] MEDS: LISINOPRIL 20 MG TABLET PO SCH (09:41)
[2019-08-02] MEDS: TAMSULOSIN HCL 0.4 MG CAP PO SCH (09:41)
[2019-08-02] MEDS: CLOPIDOGREL BISULFATE 75 MG TABLET PO SCH (09:41)
[2019-08-02] MEDS: ATORVASTATIN 20 MG TABLET PO SCH (09:41)
[2019-08-02] MEDS: BALSAM PERU/CASTOR OIL 60 GM OINT...G. TP SCH (09:42)
[2019-08-02] MEDS: MENTHOL/ZINC OXIDE 113 GM OINT. TP PRN (09:42)
[2019-08-02] MEDS: ENOXAPARIN SODIUM 30 MG/0.3 ML SYRINGE SUBCUT SCH (09:44)
[2019-08-02] MEDS ORDERED: POTASSIUM CHLORIDE 20 MEQ/PKT PACKET PO ONE (18:15)
[2019-08-02] MEDS: FLUCONAZOLE 200 mg/ NS 100 ML IV SCH (18:20)
[2019-08-02] MEDS: hydrALAZINE HCL 20 MG/ML VIAL IVP PRN (18:58)
[2019-08-03] VITALS (20 sets, daily range): BP systolic 129–188
[2019-08-03] MEDS: PIPERACILLIN/TAZO 3.375/DEX-IS 50 ML IV SCH ×4 (00:59→18:11)
[2019-08-03] MEDS: INSULIN REGULAR, HUMAN 100 UNITS/ML, 10 ML VIAL (humuLIN R) SUBCUT PRN ×4 (00:59→17:43)
[2019-08-03] MEDS: hydrALAZINE HCL 20 MG/ML VIAL IVP PRN ×3 (01:22→16:29)
[2019-08-03] MEDS: PANTOPRAZOLE SODIUM 40 MG in NS 50 ML IV SCH ×5 (01:23→21:39)
[2019-08-03] MEDS: IPRATROPIUM/ALBUTEROL SULFATE 3 ML AMPUL.NEB (DUONEB) INH SCH ×4 (01:33→20:45)
[2019-08-03] MEDS: VANCOMYCIN HCL 1,500 MG in NS 250 ML IV SCH ×2 (09:15→21:39)
[2019-08-03] MEDS: NACL 0.9% 1,000 ML IV SCH (09:23)
[2019-08-03] MEDS: FUROSEMIDE 20 MG/2 ML VIAL IVP SCH ×2 (09:51→21:38)
[2019-08-03] MEDS: TAMSULOSIN HCL 0.4 MG CAP PO SCH (09:51)
[2019-08-03] MEDS: ATORVASTATIN 20 MG TABLET PO SCH (09:51)
[2019-08-03] MEDS: LISINOPRIL 20 MG TABLET PO SCH (09:51)
[2019-08-03] MEDS: CLOPIDOGREL BISULFATE 75 MG TABLET PO SCH (09:51)
[2019-08-03] MEDS: ENOXAPARIN SODIUM 30 MG/0.3 ML SYRINGE SUBCUT SCH (09:52)
[2019-08-03] MEDS: BALSAM PERU/CASTOR OIL 60 GM OINT...G. TP SCH (12:10)
[2019-08-03] MEDS: EMOLLIENT COMBINATION NO.73 78 GM CREAM..G. TP SCH ×2 (12:11→21:00)
[2019-08-03] MEDS: MENTHOL/ZINC OXIDE 113 GM OINT. TP PRN (12:11)
[2019-08-03] MEDS ORDERED: KETOCONAZOLE 2%, 60 GM TOPICAL CREAM. (NIZORAL) TP SCH (12:30)
[2019-08-03] MEDS: MICAFUNGIN SODIUM 100 MG in NS 100 ML IV SCH (14:14)
[2019-08-03] MEDS ORDERED: KETOCONAZOLE 2%, 60 GM TOPICAL CREAM. (NIZORAL) TP ONE (17:22)
[2019-08-03] MEDS: FLUCONAZOLE 200 mg/ NS 100 ML IV SCH (18:00)
[2019-08-03] MEDS: KETOCONAZOLE 2%, 60 GM TOPICAL CREAM. (NIZORAL) TP SCH (21:37)
[2019-08-03] MEDS: INSULIN GLARGINE 100 UNITS/ML 10 ML VIAL SUBCUT SCH (21:43)
[2019-08-04] MEDS: INSULIN REGULAR, HUMAN 100 UNITS/ML, 10 ML VIAL (humuLIN R) SUBCUT PRN ×5 (00:09→23:14)
[2019-08-04 00:28] VITALS: BP_SYST 157
[2019-08-04] MEDS: IPRATROPIUM/ALBUTEROL SULFATE 3 ML AMPUL.NEB (DUONEB) INH SCH ×4 (01:12→19:34)
[2019-08-04] MEDS: NACL 0.9% 1,000 ML IV SCH ×2 (04:50→17:46)
[2019-08-04] MEDS: PANTOPRAZOLE SODIUM 40 MG in NS 50 ML IV SCH ×5 (04:50→23:07)
[2019-08-04] MEDS: PIPERACILLIN/TAZO 3.375/DEX-IS 50 ML IV SCH ×5 (04:57→23:07)
[2019-08-04] MEDS: FLUCONAZOLE 200 mg/ NS 100 ML IV SCH (07:34)
[2019-08-04 07:45] VITALS: BP_SYST 167
[2019-08-04 07:54] VITALS: BP_SYST 167
[2019-08-04 08:26] LABS: ANION GAP 9 (5-15); CALCIUM 8.8 mg/dL (8.4-11.0); CHLORIDE 109 mmol/L (98-107); GLUCOSE 375 mg/dL (70-99); SODIUM SERUM 149 mmol/L (136-145); UREA NITROGEN, BLOOD 17 mg/dL (8-21)
[2019-08-04 08:36] LABS: POTASSIUM 2.9 mmol/L (3.5-5.1)
[2019-08-04] MEDS: ATORVASTATIN 20 MG TABLET PO SCH (08:45)
[2019-08-04] MEDS: LISINOPRIL 20 MG TABLET PO SCH (08:45)
[2019-08-04] MEDS: TAMSULOSIN HCL 0.4 MG CAP PO SCH (08:45)
[2019-08-04] MEDS: CLOPIDOGREL BISULFATE 75 MG TABLET PO SCH (08:45)
[2019-08-04] MEDS: FUROSEMIDE 20 MG/2 ML VIAL IVP SCH ×2 (08:45→20:09)
[2019-08-04] MEDS: ENOXAPARIN SODIUM 30 MG/0.3 ML SYRINGE SUBCUT SCH (08:46)
[2019-08-04] MEDS: KETOCONAZOLE 2%, 60 GM TOPICAL CREAM. (NIZORAL) TP SCH ×2 (08:50→20:15)
[2019-08-04] MEDS: BALSAM PERU/CASTOR OIL 60 GM OINT...G. TP SCH (08:50)
[2019-08-04] MEDS: EMOLLIENT COMBINATION NO.73 78 GM CREAM..G. TP SCH ×2 (08:50→20:14)
[2019-08-04] MEDS: VANCOMYCIN HCL 1,500 MG in NS 250 ML IV SCH (09:04)
[2019-08-04] MEDS ORDERED: POTASSIUM CHLORIDE 20 MEQ/PKT PACKET NG ONE (09:30)
[2019-08-04 10:42] LABS: BASOPHILS # (AUTO) 0.2 K/uL (0.0-0.2); BASOPHILS % (AUTO) 1.4 % (0.0-2.0); EOSINOPHILS # (AUTO) 1.1 K/uL (0.0-0.4); EOSINOPHILS % (AUTO) 7.9 % (0.0-4.0); HEMATOCRIT 39.1 % (36-54); HEMOGLOBIN 12.5 g/dL (14.0-18.0); LYMPHOCYTES # (AUTO) 1.8 K/uL (1.0-5.5); LYMPHOCYTES % (AUTO) 13.8 % (20.5-51.5); MEAN CORPUSCULAR HEMOGLOBIN 27 pg (27-31); MEAN CORPUSCULAR HGB CONC 32 % (32-36); MEAN CORPUSCULAR VOLUME 84 fL (79.0-98.0); MONOCYTES % (AUTO) 7.3 % (1.7-9.3); NEUTROPHILS # (AUTO) 9.4 K/uL (1.8-7.7); NEUTROPHILS % (AUTO) 69.6 % (40.0-70.0); PLATELET COUNT (AUTO) 524 K/uL (130-430); RED BLOOD CELL COUNT(AUTO) 4.65 MIL/uL (4.2-6.2); RED CELL DISTRIBUTION WIDTH 17.4 % (9.0-15.0); WHITE BLOOD COUNT (AUTO) 13.4 K/uL (4.8-10.8)
[2019-08-04 12:10] VITALS: BP_SYST 150
[2019-08-04] MEDS: MICAFUNGIN SODIUM 100 MG in NS 100 ML IV SCH (13:42)
[2019-08-04 16:05] VITALS: BP_SYST 151
[2019-08-04] MEDS: INSULIN GLARGINE 100 UNITS/ML 10 ML VIAL SUBCUT SCH (20:13)
[2019-08-04] MEDS: hydrALAZINE HCL 20 MG/ML VIAL IVP PRN (23:49)
[2019-08-05 00:05] VITALS: BP_SYST 193
[2019-08-05] MEDS: IPRATROPIUM/ALBUTEROL SULFATE 3 ML AMPUL.NEB (DUONEB) INH SCH ×3 (00:34→13:32)
[2019-08-05] MEDS: NACL 0.9% 1,000 ML IV SCH (01:04)
[2019-08-05] MEDS: PANTOPRAZOLE SODIUM 40 MG in NS 50 ML IV SCH ×2 (02:59→08:35)
[2019-08-05] MEDS: PIPERACILLIN/TAZO 3.375/DEX-IS 50 ML IV SCH (05:19)
[2019-08-05] MEDS: INSULIN REGULAR, HUMAN 100 UNITS/ML, 10 ML VIAL (humuLIN R) SUBCUT PRN ×2 (05:25→11:31)
[2019-08-05 07:06] LABS: BASOPHILS # (AUTO) 0.2 K/uL (0.0-0.2); BASOPHILS % (AUTO) 1.6 % (0.0-2.0); EOSINOPHILS # (AUTO) 0.8 K/uL (0.0-0.4); EOSINOPHILS % (AUTO) 5.9 % (0.0-4.0); HEMATOCRIT 40.8 % (36-54); LYMPHOCYTES # (AUTO) 1.8 K/uL (1.0-5.5); LYMPHOCYTES % (AUTO) 13.9 % (20.5-51.5); MEAN CORPUSCULAR HEMOGLOBIN 27 pg (27-31); MEAN CORPUSCULAR HGB CONC 32 % (32-36); MEAN CORPUSCULAR VOLUME 85 fL (79.0-98.0); MONOCYTES # (AUTO) 1.2 K/uL (0.0-1.0); MONOCYTES % (AUTO) 8.8 % (1.7-9.3); NEUTROPHILS # (AUTO) 9.2 K/uL (1.8-7.7); NEUTROPHILS % (AUTO) 69.8 % (40.0-70.0); PLATELET COUNT (AUTO) 538 K/uL (130-430); RED BLOOD CELL COUNT(AUTO) 4.82 MIL/uL (4.2-6.2); RED CELL DISTRIBUTION WIDTH 17.3 % (9.0-15.0); WHITE BLOOD COUNT (AUTO) 13.2 K/uL (4.8-10.8)
[2019-08-05 07:08] LABS: ALANINE AMINOTRANSFERASE 59 U/L (12-78); ALBUMIN 2.1 g/dL (3.4-4.8); ANION GAP 6 (5-15); ASPARTATE AMINOTRANSFERASE 34 U/L (10-37); CALCIUM 9.1 mg/dL (8.4-11.0); CHLORIDE 111 mmol/L (98-107); CREATININE 1.27 mg/dL (0.55-1.30); GLUCOSE 385 mg/dL (70-99); POTASSIUM 3.1 mmol/L (3.5-5.1); SODIUM SERUM 151 mmol/L (136-145); TOTAL BILIRUBIN 0.4 mg/dL (0.0-1.0); UREA NITROGEN, BLOOD 19 mg/dL (8-21)
[2019-08-05 07:55] VITALS: BP_SYST 158
[2019-08-05] MEDS: FUROSEMIDE 20 MG/2 ML VIAL IVP SCH (08:28)
[2019-08-05] MEDS: ATORVASTATIN 20 MG TABLET PO SCH (08:29)
[2019-08-05] MEDS: TAMSULOSIN HCL 0.4 MG CAP PO SCH (08:29)
[2019-08-05] MEDS: CLOPIDOGREL BISULFATE 75 MG TABLET PO SCH (08:29)
[2019-08-05] MEDS: LISINOPRIL 20 MG TABLET PO SCH (08:31)
[2019-08-05] MEDS: EMOLLIENT COMBINATION NO.73 78 GM CREAM..G. TP SCH (08:32)
[2019-08-05] MEDS: ENOXAPARIN SODIUM 30 MG/0.3 ML SYRINGE SUBCUT SCH (08:32)
[2019-08-05] MEDS: BALSAM PERU/CASTOR OIL 60 GM OINT...G. TP SCH (08:33)
[2019-08-05] MEDS: KETOCONAZOLE 2%, 60 GM TOPICAL CREAM. (NIZORAL) TP SCH (08:34)
[2019-08-05] MEDS ORDERED: D5W 1,000 ML IV SCH (11:15)
[2019-08-05] MEDS: POTASSIUM CHLORIDE 20 MEQ TAB.PRT.SR PO SCH ×2 (11:23→16:16)
[2019-08-05 12:49] VITALS: BP_SYST 150
[2019-08-05 16:24] VITALS: BP_SYST 152
[2019-08-05 16:27] VITALS: BP_SYST 152
== END 2019-08-05 17:45 | DRG 870 ==
LOC: SED 22:25 → SIC 07-23 00:45 → EEVIPCON 07-23 00:45 → SIC 07-23 01:18 → STU 07-24 16:03 → SIC 07-26 08:34 → STU 08-03 17:55
PROVIDERS: ADMIT Internal Medicine Hospice and Palliative Medicine; ATTEND Internal Medicine Hospice and Palliative Medicine
PROC: 5A1955Z Respiratory Ventilation, Greater than 96 Consecutive Hours (ICD-10-PCS; principal; 2019-07-26)
PROC: 02HV33Z Insertion of Infusion Device into Superior Vena Cava, Percutaneous Approach (ICD-10-PCS; 2019-07-26)
PROC: B548ZZA Ultrasonography of Superior Vena Cava, Guidance (ICD-10-PCS; 2019-07-26)
PROC: 0BH17EZ Insertion of Endotracheal Airway into Trachea, Via Natural or Artificial Opening (ICD-10-PCS; 2019-07-26)
DX: A41.9 Sepsis, unspecified organism (principal); G93.41 Metabolic encephalopathy; J96.01 Acute respiratory failure with hypoxia; J11.08 Influenza due to unidentified influenza virus with specified pneumonia; J12.9 Viral pneumonia, unspecified; L03.115 Cellulitis of right lower limb; J44.0 Chronic obstructive pulmonary disease with (acute) lower respiratory infection; J44.1 Chronic obstructive pulmonary disease with (acute) exacerbation; B35.1 Tinea unguium; E11.42 Type 2 diabetes mellitus with diabetic polyneuropathy; Z20.828 Contact with and (suspected) exposure to other viral communicable diseases; E78.5 Hyperlipidemia, unspecified; G20 Parkinson's disease; I11.0 Hypertensive heart disease with heart failure; I50.89 Other heart failure; R65.20 Severe sepsis without septic shock; Z78.9 Other specified health status; Z82.49 Family history of ischemic heart disease and other diseases of the circulatory system; Z87.891 Personal history of nicotine dependence; Z79.899 Other long term (current) drug therapy
CPT/HCPCS: 36415; 36600; 71045; 71250-TC; 80048; 80053; 80202-TC; 81000-TC; 82140-TC; 82728; 82803-TC; 82962; 83051; 83605; 83880; 84484; 85007; 85014-TC; 85025; 85027; 85379; 85610-TC; 85651-TC; 85730-TC; 86140; 86403; 86710; 87040-TC; 87070-TC; 87081; 87086; 87205-TC; 87230-TC; 92610-GN; 93005; 93306; 94002; 94003; 94640; 94660; 94760; 96361; 96365; 99285; C1751; C9113; G0378; G9035; J0330; J0360; J0456; J0696; J1450; J1650; J1815; J1940; J2060; J2248; J2250; J2543; J2704; J3370; J3480; J3490; J7030; J7050; J7060; J7613; U0002